=== PATIENT | male | born 1990 | race African-American/Black ===

== ENCOUNTER 2017-01-12 10:44 | Emergency (ER) | payer OTHER ==
[~2017-01-12] VITALS: Ht 167.6 cm; Wt 78.9 kg
[~2017-01-12 10:44] MED LIST: AMOXICILLIN875 MG PO; HYDROCODON-ACE1 EAC7 PO; INDOCIN25 MG PO; INDOCIN50 MG PO; MEDROL DOSEPAK4 MG PO; MOBIC7.5 MG PO; MOTRIN800 MG PO; NO HOME MEDS; NORCO 5/3251 TABLET PO; PEN-VEE K,VEET500 MG PO; TRAMADOL HCL50 MG PO; ULTRAM50 MG PO; ZITHROMAX Z-PA250 MG PO
[2017-01-12] MEDS ORDERED: TRAMADOL HCL50 MG PO (13:30)
[2017-01-12] MEDS ORDERED: MOTRIN800 MG PO (13:30)
[2017-01-12 13:44] VITALS: BP 121/81
== END 2017-01-12 13:46 | disposition home or self-care (01) ==
LOC: EME 10:44
DX: S02.5XXA Fracture of tooth (traumatic), initial encounter for closed fracture (principal); X58.XXXA Exposure to other specified factors, initial encounter; F17.200 Nicotine dependence, unspecified, uncomplicated; Z71.6 Tobacco abuse counseling
CPT/HCPCS: 99281; 99283

== ENCOUNTER 2017-03-14 10:32 | Emergency (ER) | payer OTHER ==
[~2017-03-14] VITALS: Ht 165.1 cm; Wt 80.0 kg
[2017-03-14] MEDS ORDERED: TRAMADOL HCL50 MG PO (12:56)
[2017-03-14 13:24] VITALS: BP 129/86
== END 2017-03-14 13:25 | disposition home or self-care (01) ==
LOC: EME 10:32
DX: S86.912A Strain of unspecified muscle(s) and tendon(s) at lower leg level, left leg, initial encounter (principal); S50.811A Abrasion of right forearm, initial encounter; M54.9 Dorsalgia, unspecified; W17.81XA Fall down embankment (hill), initial encounter; Z72.0 Tobacco use
CPT/HCPCS: 73564; 99281; 99283

== ENCOUNTER 2017-09-04 02:47 | Emergency (ER) | payer OTHER ==
[~2017-09-04] VITALS: Ht 167.6 cm; Wt 88.8 kg
[2017-09-04] MEDS ORDERED: ULTRAM50 MG PO (05:19)
[2017-09-04 05:47] VITALS: BP 119/69
== END 2017-09-04 05:56 | disposition home or self-care (01) ==
LOC: EME 02:47
DX: S60.051A Contusion of right little finger without damage to nail, initial encounter (principal); W23.1XXA Caught, crushed, jammed, or pinched between stationary objects, initial encounter; F17.200 Nicotine dependence, unspecified, uncomplicated; Z91.013 Allergy to seafood
CPT/HCPCS: 73130; 73140; 99281; 99284

== ENCOUNTER 2017-09-19 11:43 | Emergency (ER) | payer OTHER ==
[~2017-09-19] VITALS: Ht 167.6 cm; Wt 86.1 kg
[2017-09-19] MEDS ORDERED: NAPROSYN500 MG PO (14:07)
[2017-09-19 14:34] VITALS: BP 134/78
== END 2017-09-19 14:35 | disposition home or self-care (01) ==
LOC: EME 11:43
DX: S90.01XA Contusion of right ankle, initial encounter (principal); S00.83XA Contusion of other part of head, initial encounter; Y04.0XXA Assault by unarmed brawl or fight, initial encounter; Y07.9 Unspecified perpetrator of maltreatment and neglect; Z72.0 Tobacco use
CPT/HCPCS: 70450; 70486; 71046; 73610; 99281; 99284